=== PATIENT | male | born 1985 | race Caucasian/White ===

== ENCOUNTER 2019-08-22 11:57 | Emergency (ER) | payer OTHER, SELFPAY ==
--- NOTE | ~2019-08-22 | XR_ITS ---
EXAMINATION: XR chest 2V EXAM DATE: 08/22/2019 12:46 INDICATION: Environmental exposure. Right-sided chest wall pain, symptoms 3 weeks. TECHNIQUE: Frontal and lateral projections of the chest obtained and reviewed. There is no prior padma dy for comparison. FINDINGS: The lungs are clear. There are no pleural effusions. The cardiomediastinal silhouette is within normal limits. There is no pneumothorax suspected. The bones and soft tissues are unremarkab le. IMPRESSION: Normal chest x-ray exam. Reviewed, dictated and finalized at location A. IMPRESSION: Normal chest x-ray exam.
[2019-08-22 12:06] VITALS: BP 132/72; PULSE 75; RESP 14; TEMP 37.5; O2SAT 98
--- NOTE | 2019-08-22 12:24 | ED.GENADULT ---
HPI - General Adult General Chief complaint: Environmental Exposure Stated complaint: pain in chest Time Seen by Provider: 08/22/19 12:24 Source: patient and RN notes reviewed Mode of arrival: ambulatory Limitations: no limitations History of Present Illness HPI narrative: 33-year-old male presents with complains of discomfort to chest wall with breathing for the past 4 days. No treatment. 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 Symptoms increased over the past 24 hours when taking deep breath. No cough or chest congestion. No rhinorrhea or nasal congestion. Denies sore throat. No high fevers, drooling, neck or throat swelling. No suddenly family or heart conditions that he is aware of. No chest pain, wheezing, or shortness of breath. No exacerbation factors. Denies diarrhea, nausea, vomiting, and abdominal pain. Tolerating liquids well. Denies headaches, weakness, fatigue, myalgia. Denies recent traveling. Denies concern for COVID-19 or exposures been home since [id number] order except for essential household needs, work, and return home. Some parts of this dictation were generated by voice recognition software and may contain typographical and/or grammatical inaccuracies. Related Data Allergies Allergy/AdvReac Type Severity Reaction Status Date / Time No Known Allergies Allergy Verified 08/22/19 12:24 Review of Systems Review of Systems: Narrative: CONSTITUTIONAL: Denies fever, chills, sweats. EYES: Denies visual changes, redness, discharge. ENT: Denies rhinorrhea, congestion, sore throat, otalgia. CARDIOVASCULAR: Denies chest pain, palpitations, edema. RESPIRATORY: Denies dyspnea, wheezing, cough. GASTROINTESTINAL: Denies abdominal pain, nausea, vomiting, diarrhea. GENITOURINARY: Denies dysuria, hematuria, abnormal discharge. SKIN: Denies rash or itching. MUSCULOSKELETAL: Denies acute back pain, joint pain, or myalgia. Complains of diffused chest wall tenderness. NEUROLOGIC: Denies numbness or focal weakness. PSYCHIATRIC: Denies anxiety or depression. All systems reviewed & are unremarkable except as noted in HPI and below. [facility] Past Medical History Medical History (Updated 08/23/19 @ 18:42 by BERNADINE Todd) No significant past medical history Surgical History Surgical History (Updated 08/23/19 @ 18:50 by BERNADINE Todd) History of elbow surgery RT ulnar nerve relocation Family History Family History (Updated 08/23/19 @ 18:43 by BERNADINE Todd) Mother Alive and well Father Alive and well Social History Social History (Updated 08/23/19 @ 18:44 by BERNADINE Todd) Smoking status: Never smoker Second hand tobacco smoke exposure: No Alcohol intake: current Substance use: never Living arrangements: with family Occupation/Education: occupation Gender identity (if verbalized by the patient): Male Comments At time of signature, agree with nurse past medical, surgical, social, and family history. There is no relevant family history pertinent to the presenting complaint. Exam Narrative: Exam Narrative: GENERAL: This is a well-nourished, well-developed patient, in no apparent distress. Talks in full sentences and ambulates with steady gait without dyspnea. HEAD: normocephalic, atraumatic. EYES: PERRL. Sclera clear/white. Vision is grossly intact. EARS: External ears normal, auditory canals clear and without drainage, TMs normal without perforation. Hearing grossly intact. NOSE: External nose normal with no obvious nasal discharge, nares with mild redness and enlarged turbinates, no rhinorrhea. THROAT: Mucous membranes moist, posterior pharynx clear. Mild erythema, tonsils normal. NECK: Neck supple, non-tender without lymphadenopathy, masses or thyromegaly. CARDIOVASCULAR: Regular rate and rhythm without murmurs, gallops, or
== END 2019-08-22 13:04 | disposition home or self-care (01) ==
PROVIDERS: Emergency Provider Nurse Practitioner Family
DX: M94.0 Chondrocostal junction syndrome [Tietze] (principal)
CPT/HCPCS: 71046; 99213; G0463

== ENCOUNTER 2023-06-20 11:54 | Emergency (ER) | payer OTHER, SELFPAY ==
[2023-06-20 11:54] VITALS: BP 136/91; PULSE 79; RESP 20; TEMP 36.4; O2SAT 98
--- NOTE | 2023-06-20 11:57 | ED.WOUNDLAC ---
HPI - Wound/Laceration General Chief Complaint: Wound/Laceration Stated Complaint: laceration Source: patient and family Mode of arrival: ambulatory History of Present Illness HPI narrative: this is a 37-year-old male that was using a knife to open up the back and cause a flap laceration to the left thumb right under the left thumbnail with a flap laceration well approximated currently not bleeding and patient is not up-to-date with his tetanus there is no numbness or tingling. Onset (ago): hour(s) Location: other Extremity Location: Left: hand ( thumb with a flap laceration right below the nail) Place: home Patient tetanus UTD: No Context: accidental Associated symptoms: none Related Data Allergies Allergy/AdvReac Type Severity Reaction Status Date / Time No Known Allergies Allergy Verified 08/22/19 12:24 Review of Systems Review of Systems: All systems reviewed & are unremarkable except as noted in HPI and below PMFSH Past Medical History Medical History No significant past medical history Surgical History Surgical History History of elbow surgery RT ulnar nerve relocation Family History Family History Mother Alive and well Father Alive and well Social History Social History Smoking status: Never smoker Second hand tobacco smoke exposure: No Alcohol intake: current Substance use: never Living arrangements: with family Occupation/Education: occupation Gender identity (if verbalized by the patient): Male Exam Const: General: healthy appearing Nutritional Appearance: well nourished Orientation/consciousness: patient oriented x3 Limitations: no limitations Resp: Effort & Inspection: normal respiratory effort Auscultation: clear to auscultation bilaterally Cardio: Rate: regular rate Rhythm: regular rhythm GI: GI Palp: Yes Soft to palpation Auscultation: normal bowel sounds Skin: Wounds: wounds noted Other: Flap laceration approximately 2cm in length left thumb Neuro: General: patient oriented x3 and moves all extremities Extrem: General: normal to inspection Psych: Mental Status: mental status grossly normal Course Course Emergency Course: patient received Adacel dated with his tetanus and Dermabond was used for the flap laceration on his left thumb Vital Signs Vital signs: Vital Signs Temperature 36.4 C 06/20/23 11:54 Pulse Rate 79 06/20/23 11:54 Respiratory Rate 20 06/20/23 11:54 Blood Pressure 136/91 H 06/20/23 11:54 Pulse Oximetry 98 06/20/23 11:54 Oxygen Delivery Room Air 06/20/23 11:54 Temperature 36.4 C 06/20/23 11:54 Pulse Rate 79 06/20/23 11:54 Respiratory Rate 20 06/20/23 11:54 Blood Pressure 136/91 H 06/20/23 11:54 Pulse Oximetry 98 06/20/23 11:54 Oxygen Delivery Room Air 06/20/23 11:54 Procedures Laceration Laceration 1: Date: 06/20/23 Time: 12:51 Site: hand Description: flap Pre-repair: wound explored and irrigated ====== Skin Level ====== Skin layer closed with: dermabond ====== Subcutaneous Layer ====== ====== Muscle Layer ====== ====== Tendon Layer ====== Critical Care Time Critical Care Time Critical Care Time: No Discharge Plan Discharge Clinical Impression: Laceration Patient Disposition: Home, Self-Care Condition: Stable Instructions: Antibiotic Form, Laceration (ED) Additional Instructions: advised continue current medical regimen and follow with primary if symptoms persist or worsen. Prescriptions: No Action methylprednisolone 4 mg tablets,dose pack See Rx Instructions .ROUTE .COMPLEX Qty: 21 0RF Rx Instructions: orally per package directions, start on 08/29/19
[2023-06-20] MEDS: TETANUS,DIPHTHERIA,AC PERTUSSIS ADULT 0.5 ML (ADACEL) IM (13:02)
== END 2023-06-20 13:37 | disposition home or self-care (01) ==
PROVIDERS: Emergency Provider Emergency Medicine
DX: S61.012A Laceration without foreign body of left thumb without damage to nail, initial encounter (principal); Z23 Encounter for immunization; W26.0XXA Contact with knife, initial encounter; Y92.009 Unspecified place in unspecified non-institutional (private) residence as the place of occurrence of the external cause
CPT/HCPCS: 12001; 90471; 90715; 99282